=== PATIENT | male | born 1980 | race Caucasian/White ===

== ENCOUNTER 2017-02-21 16:50 | Inpatient (IN) | payer OTHER ==
[~2017-02-21] VITALS: Ht 177.8 cm; Wt 82.6 kg
--- NOTE | ~2017-02-21 | DS ---
Unit #: [id number] #: [id number] [facility]: [facility]ANG [id number] [facility] [address] [place] [address] [id number] MR#: [id number] NAME: CONCETTA WANG ROOM: P177 Age: 36 Sex: M Admission Date: 02/21/2017 : 1980 Discharge Date: 02/26/2017 Attending Physician: Roz Ivan M.D. Primary Care Physician: Primary Care Physician No DISCHARGE SUMMARY IDENTIFYING DATA Mr. Wang is a 31-year-old single white male, who is a resident of [place], [place], and was self-referred to the hospital on voluntary basis with chief complaint of "I need help for substance abuse." DISCHARGE DIAGNOSES Psychiatric: Major depressive disorder, recurrent, moderate, without psychotic features; alcohol dependence, moderate and acute withdrawals; benzodiazepine dependence, moderate and acute withdrawals; opioid dependence, moderate and acute withdrawals; methamphetamine dependence, moderate. Medical: Dyslipidemia. Stressors: Moderate psychosocial stressors. HISTORY OF PRESENT ILLNESS Please see initial psychiatric evaluation for details. PAST PSYCHIATRIC HISTORY Please see initial psychiatric evaluation for details. PAST MEDICAL HISTORY Please see initial psychiatric evaluation for details. HOSPITAL COURSE The patient was admitted to the adult psychiatric and chemical dependency unit at [facility] Berkowitz and was oriented to the hospital environment. Routine p.r.n. medications were initiated, and he was started back on his home medications and detox protocol was initiated and was closely monitored. He was taking the medications regularly and was tolerating them fairly well and was able to show a decent and therapeutic response with improvement in depression and anxiety, and was willing to continue treatment on an outpatient basis and as such, it was decided he will be discharged home and will continue treatment on an outpatient basis. DISCHARGE MEDICATIONS None. DISCHARGE CONDITION Stable. PROGNOSIS Fair. Unit #: [id number] #: [id number] Patient: CONCETTA WANG Dictated by... Eva Ribera/dmitriy TD: 02/26/2017 22:27 JOB #: [id number] DISCHARGE SUMMARY Page 1 of 1 X Roz Ivan MD DISCHARGE SUMMARY
--- NOTE | ~2017-02-21 | PN ---
Unit #: [id number] #: [id number] Patient: CONCETTA WANG [id number] [facility] [address] [place] [address] [id number] MR#: [id number] NAME: CONCETTA WANG ROOM: 77 Age: 36 Sex: M Admission Date: 02/21/2017 : 1980 Attending Physician: Roz Ivan M.D. Admitting Physician: Roz Ivan M.D. Primary Care Physician: Primary Care Physician Laila OMALLEY NOTES DATE February 24, 2017 DISCUSSION Mr. Wang is a 36-year-old white male, who was seen today and chart was reviewed and the case was discussed with the staff. He has been anxious, withdrawn, and seclusive to himself. Meanwhile, he has been cooperative with the treatment recommendations and he has been taking the medications and tolerating them fairly well with no reported side effects. MENTAL STATUS EXAMINATION Young white male, who was casually dressed with fair personal hygiene and appears to be in no acute distress or discomfort. He was awake and alert on interaction with intact orientation. His mood is anxious with a congruent affect. He denies any suicidal or homicidal ideations. His insight and judgment remain slightly impaired. TREATMENT PLAN 1. We will continue him on his current treatment protocol, and will monitor his response to the medications, and make further adjustments as needed. 2. We will continue to followup. Dictated by... Eva Ribera/mino TD: 02/25/2017 08:52 JOB #: [id number] Unit #: [id number] #: [id number] Patient: CONCETTA WANG PROGRESS NOTES Page 1 of 1 X Roz Ivan MD PROGRESS NOTE
--- NOTE | ~2017-02-21 | PA ---
Unit #: [id number] #: [id number] Patient: CONCETTA WANG [id number] [facility] [address] [place] [address] [id number] MR#: [id number] NAME: CONCETTA WANG ROOM: P177 Age: 36 Sex: M Admission Date: 02/21/2017 : 1980 Date of Assessment: Attending Physician: Roz Ivan M.D. Admitting Physician: Roz Ivan M.D. Primary Care Physician: Primary Care Physician No PSYCHIATRIC ASSESSMENT DATE OF SERVICE 02/22/2017. IDENTIFYING DATA Mr. Wang is a 31-year-old single white male, who is a resident of [place], [place], and was self-referred to the hospital on a voluntary basis. CHIEF COMPLAINT "I need help for substance abuse." HISTORY OF PRESENT ILLNESS Mr. Wang is a 37-year-old white male with a history of substance abuse and dependence, who presented to the hospital with a blood alcohol level of 0.055 and reports that he has been using heroin, Suboxone, methamphetamine, alcohol and Xanax, and reports he was going to the methadone clinic and stated that 3 to 4 months ago, he relapsed and started shooting up speed and have been on a downward spiral ever since. He reports using heroin on a daily basis via IV route and reports drinking 4 to 5 beers a day and stated "I don't see a point in living anymore. I have thoughts of gassing myself in other words." He reports poor social support system with increasing depression, anxiety, irritability, feelings of hopelessness and helplessness, and suicidal ideation with intent or plan, and as such, recommendation for inpatient level of care for safety and stabilization was made and the patient was transferred to us. SUBSTANCE ABUSE HISTORY The patient reports an extensive history of substance abuse and dependence including alcohol, cannabis, cocaine, acid, opioids, methamphetamine, benzodiazepines, and methadone, and reports currently has been using IV heroin and IV methamphetamine and has been drinking 12 beers a day and has been using 2 bars of benzodiazepines a day. PAST PSYCHIATRIC HISTORY The patient has had a history of inpatient and outpatient chemical dependency treatment. Review of the medical records indicate that currently he is not active in any treatment program, is not seeing a psychiatrist, and is not taking any psychotropic medications. PAST MEDICAL HISTORY Dyslipidemia. ALLERGIES Unit #: [id number] #: [id number] Patient: CONCETTA WANG Penicillin. CURRENT MEDICATIONS None. PERSONAL AND SOCIAL HISTORY A 37-year-old white male, who reports that he is single, unemployed and essentially homeless and has poor social support system. MENTAL STATUS EXAMINATION Young white male, who was casually dressed with a fair personal hygiene and appears to be in no acute distress or discomfort. He was awake and alert on interaction with intact orientation to time, place, and person. His mood was anxious and depressed with a congruent affect. His speech was slow and restricted in content. His thought processes were disorganized with some looseness of associations, flight of ideas, and suicidal ideations. His insight and judgment remain significantly impaired. DIAGNOSTIC IMPRESSION Psychiatric: Major depressive disorder, recurrent, moderate, without psychotic features. Alcohol dependence, moderate, in acute withdrawals. Benzodiazepine dependence, moderate, in acute withdrawals. Opioid dependence, moderate, in acute withdrawals. Methamphetamine dependence, moderate. Medical: Dyslipidemia. Stressors: Moderate psychosocial stressors. TREATMENT PLAN 1. The patient has presented with a history of mood disorder and substance abuse and dependence and has been decompensating and will need inpatient hospitalization for detoxification and safety and stabilization. We will start him back on his home medications and we will adjust the medications and monitor response. 2. Supportive therapy was provided to the patient. 3. Safe, structured, and nourishing environment will be provided. ESTIMATED LENGTH OF STAY 5 to 7 days. ABILITY TO HELP SELF Limited. WILLINGNESS TO HELP SELF The patient appears to be willing to help self. STRENGTHS 1. Communicative. 2. Cooperative. PROBLEMS 1. Chronic dysphoric symptoms. 2. Chronic chemical dependency. 3. Poor social support system. DISCHARGE CRITERIA Unit #: [id number] #: [id number] Patient: CONCETTA WANG This will be contingent upon the patient's ability to go through detox without having any significant withdrawal symptoms as well as ability to stay safe to himself, particularly after discharge from the hospital. Dictated by... Roz Ivan M.D. GUILLERMO/dmitriy TD: 02/22/2017 06:40 JOB #: [id number] PSYCHIATRIC ASSESSMENT Page 1 of 1 X Roz Ivan MD PSYCHIATRIC ASSESSMENT
--- NOTE | ~2017-02-21 | PN ---
Unit #: [id number] #: [id number] Patient: CONCETTA WANG [id number] [facility] [address] [place] [address] [id number] I MR#: [id number] NAME: CONCETTA WANG ROOM: 77 Age: 36 Sex: M Admission Date: 02/21/2017 : 1980 Attending Physician: Roz Ivan M.D. Admitting Physician: Roz Ivan M.D. Primary Care Physician: Primary Care Physician Laila PHILIPPE PROGRESS NOTES DATE 02/23/2017 DISCUSSION Mr. Wang is a 36-year-old white male who was seen today and chart was reviewed and case was discussed with the staff. He remains anxious, withdrawn . Meanwhile, he has been taking medications and tolerating them fairly well with no reported side effects. MENTAL STATUS EXAMINATION Young white male who was casually dressed with fair personal hygiene and appears to be in no acute distress or discomfort. He was awake and alert on interaction with intact orientation. His mood was anxious with congruent affect. He denies any suicidal or homicidal ideations and also denies any auditory or visual hallucinations. His insight and judgement remains slightly impaired. TREATMENT PLAN 1. Will continue on his current medications and treatment protocol. Will monitor his response to the medications. 2. Will continue to follow up. Dictated by... Eva Ribera/pao TD: 02/23/2017 18:06 JOB #: [id number] Unit #: [id number] #: [id number] Patient: CONCETTA WANG PROGRESS NOTES Page 1 of 1 X Roz Ivan MD PROGRESS NOTE
--- NOTE | ~2017-02-21 | HP ---
Unit #: [id number] #: [id number] Patient: CONCETTA WANG [id number] [place] [address] [id number] MR#: [id number] NAME: CONCETTA WANG ROOM: P177 Age: 36 Sex: M Admission Date: 02/21/2017 : 1980 Attending Physician: Roz Ivan M.D. Admitting Physician: Roz Ivan M.D. Primary Care Physician: Primary Care Physician No HISTORY AND PHYSICAL HISTORY OF PRESENT ILLNESS The patient is a 36-year-old male, admitted to [facility] on 02/21/2017 for polysubstance abuse. PAST MEDICAL HISTORY Polysubstance abuse. PAST SURGICAL HISTORY Appendectomy. SOCIAL HISTORY He is unemployed, he lives with a friend. He smokes half pack of cigarettes daily. He has a history of polysubstance use. FAMILY MEDICAL HISTORY Noncontributory. ALLERGIES Penicillin. CURRENT MEDICATIONS The patient is not on any home medications. REVIEW OF SYSTEMS CONSTITUTIONAL: No fever or chills. HEENT: Denies any sore throat, ear pain or runny nose. CARDIOVASCULAR: Denies chest pain, irregular heart rhythm or palpitations. CHEST: Denies shortness of breath or cough. No hemoptysis. GASTROINTESTINAL: Denies nausea, vomiting, diarrhea or chronic constipation. ENDOCRINE: Denies history of increased thirst or urination. No recent significant weight loss or gain. GENITOURINARY: Denies dysuria, frequency, or hematuria. SKIN: Denies any rashes. HEMATOLOGIC: Denies history of increased bleeding or bruising. MUSCULOSKELETAL: Denies any hot, swollen joints. No generalized muscle pain. NEUROLOGIC: Denies problems with vision or speech. No frequent, severe headaches. No numbness, tingling or weakness in any extremities. Denies loss of bladder or bowel control. PHYSICAL EXAMINATION GENERAL: Awake, alert, oriented, and in no acute distress. Unit #: [id number] #: [id number] Patient: CONCETTA WANG VITAL SIGNS: Temperature 98.7, heart rate 86, respirations 20, and blood pressure 110/62. HEIGHT: 5 feet 10 inches. WEIGHT: 182 pounds. SKIN: Warm and dry without rash or lesion. HEENT: Normocephalic. TMs not viewed. Oral and nasal passages clear. Conjunctivae clear. PERRLA. EOMs intact. NECK: Supple without lymphadenopathy or thyromegaly. HEART: Regular rate and rhythm without murmur. LUNGS: Clear. ABDOMEN: Soft, nontender. : Not done. EXTREMITIES: No evidence of cyanosis, clubbing or edema. Moves all without focal deficit. NEUROLOGICAL: Grossly within normal limits. Cranial Nerves: II: Visual de la rosa are intact. III, IV AND : Extraocular movements are intact. Pupils are equal, round and reactive to light. V: Facial sensation is grossly normal. VII: Facial movements and expression are normal. VIII: Auditory acuity grossly intact. IX, X: Uvula is midline. Phonation is normal. XI: Patient shrugs shoulders and turns head normally. XII: Tongue protrudes in the midline. Sensory and Motor Function: Sensory and motor sensation is grossly normal. Motor: moves all extremities well. Coordination: Gait is normal. Deep Tendon Reflexes: Intact. IMPRESSION 1. Psychiatric admission. 2. Polysubstance use. RECOMMENDATIONS Psychiatric, per psychiatrist. MEDICAL No contraindications to participating in facility's activities. MEDICAL PROGNOSIS Good. MEDICAL CONDITION Stable. Dictated by... Estella Leon/mino TD: 02/22/2017 11:31 JOB #: [id number] Unit #: [id number] #: [id number] Patient: CONCETTA WANG HISTORY AND PHYSICAL Page 1 of 1 X REA CONROY APRN HISTORY AND PHYSICAL
[2017-02-22 09:34] LABS: BASOPHIL% 0.7 % (0-2.5); EOSINOPHIL# 0.1 X10e3 (0-0.7); EOSINOPHIL% 2.8 % (0.0-7.0); HEMATOCRIT 41.2 % (38.0-50.0); HEMOGLOBIN 13.8 gm/dL (13.0-16.0); LYMPHOCYTE# 2.2 X10e3 (1.0-3.5); LYMPHOCYTE% 45.2 % (17.0-45.0); MEAN CELL VOLUME 86.4 FL (83-96); MEAN CORPUSCULAR HEMOGLOBIN 29.1 PG (28-34); MEAN CORPUSCULAR HGB CONC 33.6 g/dL (30-36); MEAN PLATELET VOLUME 7.5 FL (6.5-11.5); MONOCYTE# 0.4 X10e3 (0-1.0); MONOCYTE% 8.8 % (3.0-12.0); NEUTROPHIL# 2.1 X10e3 (1.5-7.1); NEUTROPHIL% 42.5 % (40-75); PLATELET COUNT 262 X10e3 (140-420); RED BLOOD COUNT 4.77 X10e (3.90-5.60); RED CELL DISTRIBUTION WIDTH 13.5 % (11.0-15.5); WHITE BLOOD COUNT 4.9 X10e3 (4.0-10.5)
[2017-02-22 09:39] LABS: DIFF IND NO
[2017-02-22 09:46] LABS: URINE APPEARANCE CLEAR; URINE BILIRUBIN NEG (NEG); URINE BLOOD NEG (NEG); URINE COLOR YELLOW; URINE GLUCOSE NEG (NEG); URINE KETONE TRACE (NEG); URINE LEUKOCYTE ESTERASE NEG (NEG); URINE NITRATE NEG (NEG); URINE PROTEIN NEG (NEG); URINE SPECIFIC GRAVITY 1.023 (1.003-1.035); URINE UROBILINOGEN 0.2 MG/DL (NEG)
[2017-02-22 09:56] LABS: BILIRUBIN,TOTAL 0.8 mg/dL (0.2-2.0); BUN/CREATININE RATIO 26.66; CALCIUM SERUM 9.4 mg/dL (8.4-10.2); CREATININE SERUM 0.6 mg/dL (0.6-1.4); GLOM FILT RATE Estimated 127.6 mL/min (>60); POTASSIUM 4.5 mmol/L (3.5-5.1); PROTEIN TOTAL SERUM 6.5 g/dL (6.0-8.3)
[2017-02-22 10:06] LABS: AMPHETAMINE POS (NEG); BARBITURATES NEG (NEG); BENZODIAZEPINES NEG (NEG); COCAINE NEG (NEG); MARIJUANA NEG (NEG); OPIATES POS (NEG); TRICYCLIC ANTIDEPRESSANTS NEG (NEG); U METHADONE NEG (NEG)
== END 2017-02-26 10:30 | DRG 885 ==
LOC: P1E 18:43 → EDBD 18:43 → P1E 02-26 10:30
PROVIDERS: Psychiatry & Neurology Psychiatry
PROC: HZ2ZZZZ Detoxification Services for Substance Abuse Treatment (ICD-10-PCS; principal; 2017-02-21)
DX: F33.1 Major depressive disorder, recurrent, moderate (principal); F10.239 Alcohol dependence with withdrawal, unspecified; F13.239 Sedative, hypnotic or anxiolytic dependence with withdrawal, unspecified; F15.23 Other stimulant dependence with withdrawal; Z88.0 Allergy status to penicillin; F17.210 Nicotine dependence, cigarettes, uncomplicated
CPT/HCPCS: 80053; 80307; 81003; 85025; 86592